=== PATIENT | female | born 1995 | race Caucasian/White ===

== ENCOUNTER 2021-02-24 21:18 | Emergency (ER) | payer OTHER ==
[~2021-02-24] VITALS: Ht 160 cm; Wt 47.6 kg
== END 2021-02-25 00:51 | disposition home or self-care (01) ==
LOC: ER 21:18
DX: E86.0 Dehydration (principal)

== ENCOUNTER 2021-12-20 16:34 | Emergency (ER) | payer OTHER ==
[~2021-12-20] VITALS: Ht 160 cm; Wt 50.8 kg
[2021-12-20] MEDS ORDERED: FLUCONAZOLE150 MG PO (17:10)
== END 2021-12-20 17:14 | disposition home or self-care (01) ==
LOC: ER 16:34
DX: B37.3 Candidiasis of vulva and vagina (principal)

== ENCOUNTER 2022-02-22 21:54 | Emergency (ER) | payer OTHER ==
[~2022-02-22] VITALS: Ht 160 cm; Wt 52.2 kg
[~2022-02-22 21:54] MED LIST: FLUCONAZOLE150 MG PO
[2022-02-22] MEDS ORDERED: PEPCID AC20 MG PO (23:42)
== END 2022-02-23 00:36 | disposition home or self-care (01) ==
LOC: ER 21:54
DX: K29.70 Gastritis, unspecified, without bleeding (principal)

== ENCOUNTER → 2022-04-23 | Emergency (ER) | payer OTHER ==
[~2022-04-23] VITALS: Ht 160 cm; Wt 52.2 kg
[~2022-04-23] MED LIST changes: +PEPCID AC20 MG PO
== END | disposition home or self-care (01) ==
LOC: ER 21:06
DX: S30.0XXA Contusion of lower back and pelvis, initial encounter (principal); W19.XXXA Unspecified fall, initial encounter; Y93.9 Activity, unspecified; Y92.9 Unspecified place or not applicable; Y99.9 Unspecified external cause status

== ENCOUNTER 2023-08-10 22:17 | Emergency (ER) | payer OTHER ==
[~2023-08-10] VITALS: Ht 167.6 cm; Wt 72.6 kg
== END 2023-08-11 04:58 | disposition home or self-care (01) ==
LOC: ER 22:17
DX: K52.9 Noninfective gastroenteritis and colitis, unspecified (principal)